=== PATIENT | female | born 1960 | race Caucasian/White ===

== ENCOUNTER → 2024-06-14 08:41 | Outpatient (REF) | payer MEDICARE, SELFPAY | LOC: HWWDC 08:41 | PROVIDERS: ATTENDING PHYSICIAN Family Medicine | DX: Z12.31 Encounter for screening mammogram for malignant neoplasm of breast (principal) | CPT/HCPCS: 77063; 77067 ==

== ENCOUNTER 2024-11-07 22:12 | Observation (INO) | payer MEDICARE, SELFPAY ==
[2024-11-07 18:53] VITALS: BP 179/100
[2024-11-07 19:24] LABS: % Eosinophils 6.4 % (0-6); % Immature Granulocytes 0.4 % (0-0.5); % Lymphocytes 23.5 % (20.5-51.1); % Monocytes 6.3 % (1.7-9.3); % Neutrophils 62.4 % (42.2-75.2); Absolute Basophils 0.1 10^3/uL (0-0.2); Absolute Eosinophils 0.9 10^3/uL (0-0.7); Absolute Immature Granulocytes 0.1 10^3/uL (0-0.05); Absolute Lymphocytes 3.2 10^3/uL (1.2-3.4); Absolute Monocytes 0.9 10^3/uL (0.1-0.6); Absolute Neutrophils 8.5 10^3/uL (1.4-6.5); Hemoglobin 14.8 g/dL (12.0-16.0); Mean Corp Hgb Conc. 33.6 g/dL (33.0-37.0); Mean Corpuscular Hgb 26.6 pg (27.0-31.0); Mean Corpuscular Volume 79.1 fL (81.0-99.0); Nucleated Red Blood Cells % 0 %; Platelet Count 271 10^3/uL (130-400); Red Blood Cell Count 5.56 10^6/uL (4.20-5.40); Red Cell Dist. Width 13.2 % (11.5-14.5); White Blood Cell Count 13.7 10^3/uL (4.8-10.8)
[2024-11-07 19:41] LABS: ALT (SGPT) 40 U/L (0-35); AST (SGOT) 35 U/L (14-36); Albumin 4.6 g/dl (3.5-5.0); Alkaline Phosphatase 82 U/L (38-126); Blood Urea Nitrogen 24 mg/dl (7-17); Calcium 9.8 mg/dl (8.4-10.2); Carbon Dioxide 30 mmol/L (22-30); Chloride 100 mmol/L (98-107); Glucose 194 mg/dl (70-99); Potassium 4.8 mmol/L (3.5-5.1); Sodium 140 mmol/L (135-145); Total Bilirubin 0.6 mg/dl (0.2-1.3); Total Protein 6.9 g/dl (6.3-8.2); eGFR > 60.00
--- NOTE | 2024-11-07 21:31 | ED.SKININJ ---
HPI-Injury
General
Chief Complaint: Bite
Source: patient
Exam Limitations: none
Time Seen by Provider: 11/07/24 20:55
Nursing documentation reviewed up to this point in time: agreed with
History of Present Illness-Injury
Initial Injury comments:
The patient is a pleasant 64-year-old female who reports that she was walking in the park 4 days ago and feels she got bit by an insect just above her right ankle area. Patient reports that the next day she noticed the area was red and inflamed.
Patient reports that she was evaluated yesterday at urgent care and started on Keflex for an infected insect bite. Despite taking 4 doses of antibiotics, the skin redness and swelling is now streaking up her right lower leg and down her right foot.
Patient reports chills but no fever.
Past History
Past History
ED Past Medical History: HTN, Hypercholesterolemia and NIDDM
ED Past Surgical History: Other
Social History
Tobacco: Non-smoker
Alcohol: Other
Drug: None
Personal:
Living: with family
Employment: Other
Family History
Family History: Other
Review of Systems
Review of Systems
Allergies reviewed?: Yes
All Other Systems: ROS reviewed and negative except as documented in HPI and ROS
Constitutional: Reports chills
EENT: Reports no symptoms
Respiratory: Reports no symptoms
Cardiac: Reports no symptoms
ABD/GI: Reports no symptoms
: Reports no symptoms
Musculoskeletal: Reports edema
Skin: Reports other
Neurological: Reports no symptoms
Endocrine: Reports no symptoms
Hematologic/Lymphatic: Reports no symptoms
Psychiatric: Reports no symptoms
Phy Exam
Physical Exam
Physical Exam:
Physical Exam
General: no apparent distress, not acutely ill
Neck: supple.
Heart: s1/s2 regular rate and rhythm, no murmur. equal radial pulses.
Lungs: no acute respiratory distress. clear bilaterally
Abdomen: normal bowel sounds. not tender. no CVAT
Neuro: alert and oriented. no focal neurological deficits
Skin: Erythematous circular area just proximal to right lateral ankle that appears to look like an infected bug bite with surrounding erythema encompassing patient's right ankle area, top of patient's right foot and
streaking redness up right lower leg.
Psychiatric: well kept. interactive and cooperative
Extremities: Edematous right lower extremity. Full range of movement of right ankle with minimal pain.
Course
Orders/Labs/Results
Orders:
Orders
11/07/24 19:16
Complete Blood Count/With Diff Urgent
Comprehensive Metabolic Panel Urgent
11/07/24 21:36
Clindamycin 600 mg/50 ml [Cleocin] 600 mg in 50 ml IV NOW
Abnormal Lab Results
11/07/24
19:16
WBC 13.7 H 10^3/uL
(4.8-10.8)
RBC 5.56 H 10^6/uL
(4.20-5.40)
MCV 79.1 L fL
(81.0-99.0)
MCH 26.6 L pg
(27.0-31.0)
Abs Immat Gran (auto) 0.1 H 10^3/uL
(0-0.05)
Absolute Neuts (auto) 8.5 H 10^3/uL
(1.4-6.5)
Absolute Monos (auto) 0.9 H 10^3/uL
(0.1-0.6)
Absolute Eos (auto) 0.9 H 10^3/uL
(0-0.7)
Eosinophils % 6.4 H %
(0-6)
BUN 24 H mg/dl
(7-17)
Glucose 194 H mg/dl
(70-99)
ALT 40 H U/L
(0-35)
11/07/24 19:16
11/07/24 19:16
Vital Signs
Initial and Last Documented VS:
Initial Vital Signs
Temp Pulse Resp BP Pulse Ox
98.6 F 91 18 179/100 99
11/07/24 18:53 11/07/24 18:53 11/07/24 18:53 11/07/24 18:53 11/07/24 18:53
Last Documented Vital Signs
Temp Pulse Resp BP Pulse Ox
98.6 F 91 18 179/100 99
11/07/24 18:53 11/07/24 18:53 11/07/24 18:53 11/07/24 18:53 11/07/24 18:53
MDM/Problems Addressed
Differential Diagnosis Includes:
Infected insect bite of right lower extremity, septic arthritis of right ankle, inflammatory reaction from bug bite
MDM/Problems Addressed:
Patient presents with acute swelling, redness and pain of right lower extremity after possible insect bite
Chronic conditions affecting care: DM
Acute Exacerbation and/or Progression of Chronic Illness:
Patient is acutely hyperglycemic, likely due to infection
Acute Exacerbation and/or Progression of Chronic Illness: DM
*Pulse Oximetry
Patient hypoxic: no
*EKG
Interpreted by ED Provider?: NA
*Scientific Aide Interpretation
Rate: Scientific Aide- N/A
*Critical Care Note
Total Time (30-74mins, 75-104mins- exclusive of procedures): Not Applicable
Patient Management
Social determinants of health affecting care: Living situation and Strong social support
Discussion with other providers: Hospitalist
ED Attending Note
-
Portions of this chart may have been created with voice recognition software.� Occasional wrong word or��sound alike� substitutions may have occurred due to the inherent limitations of voice recognition software.
Discharge Plan
Departure
Patient Disposition: Admit
Date of Disposition: 11/07/24
Time of Disposition: 21:31
Admit to: Med/Surg
Presentation/result/management discussed w/ accepting MD/DO: Hospitalist
Patient with high blood pressure during this ER visit?: Yes
Condition: Good
Covid-19: Not Applicable
Discharge Problem:
Infected wound of right lower leg
Referrals:
Henrique Dang MD [Family Provider] -
Interventions
Interventions:
*Risk Screen - Suicide Last Done: 11/07/24 18:55
*General Assessment Last Done: 11/07/24 18:55
*Neglect/Abuse Screening Last Done: 11/07/24 18:55
*ED- Fall Risk Assessment Last Done: 11/07/24 20:50
*ED COVID-19 Vaccine History Last Done: 11/07/24 18:55
ED-Skin Assessment Last Done: 11/07/24 20:50
Discharge Date and Time
Print Language: NIGERIAN
--- NOTE | 2024-11-07 21:39 | HPS.HSE ---
Family Physician
-
Family Physician: Henrique Dang
Chief Complaint
-
leg wound
History of Present Illness
This is a 64-year-old female presenting to the emergency department with right lower extremity swelling and redness following an insect bite about 2 days ago.
Patient has past medical history significant for diabetes and hypertension. She noticed stinging sensation about days ago while enjoying the pack. She noticed immediate small spot with cycle raised erythematous lesion in left leg. She denied
pruritus. She reports of burning sensation.�Redness and swelling increased and patient was seen at urgent care. There she was started on Keflex. She started taking Keflex on Friday 1 PM. She has continued to take the Keflex until today. She
reports that there is been increased to swelling and redness since then. No pruritus still. She denies fevers or chills. She currently feels that there is more numbness than pain.
In the emergency department she was hypertensive to 180/100 pulse rate of 91 and she was satting 99% on room air. She was afebrile with a temp of 98.6. White count was 13.7 hemoglobin and platelet counts were normal. Electrolytes BUN/creatinine
were stable and normal. Glucose was 194.
Medical History
Past Medical History
Past Medical History: Reports Asthma, HTN, Hypercholesterolemia, NIDDM and Other (IBS, diverticulosis)
Additional Past Medical History:
Neuromediated
Left eye optic neuritis
Past Surgical History: Reports Appendectomy, Gynocological (Hysterectomy) and Other (Right breast biopsy)
Social History
Tobacco: Non-smoker
Alcohol: Occasional
Drug: None
Personal: Single
Living: With Family
Family History
Family History: Not pertinent
Allergies / Home Medications
Allergies reflects when Allergies were last updated in [facility].
Home Medications with original date entered in [facility]
Allergy/Medication List:
Allergies
Allergy/AdvReac Type Severity Reaction Status Date / Time
meclizine [From Antivert] Allergy Unknown Verified 11/07/24 18:54
Albuterol Sulfate HFA 108 (90 Base) MCG/ACT 2 puffs as needed Inhalation every 6 hrs for 30 days Apr, Active
hydroCHLOROthiazide 25 MG TAKE 1 TABLET BY MOUTH EVERY DAY IN THE MORNING FOR 90 DAYS Orally Once a day for 90 days Active
Crestor 20 MG 1 tablet Orally Once a day for 90 days May, Active
CoQ-10 100 MG 2 capsules Orally Once a Day Active
Cephalexin 500 MG 1 tablet Orally every 8 hrs for 7 days Oct, November, Active
Meloxicam 15 MG 1 tablet Orally Once a day for 90 days Sep, Active
Fexofenadine HCl 180 MG 1 tablet Swallow whole with water; do not take with fruit juices. Orally Once a day Active
Montelukast Sodium 10 MG TAKE 1 TABLET BY MOUTH EVERY DAY FOR 90 DAYS for 90 Active
Vitamin D 50 MCG (2000 UT) 1 tablet Orally Once a day for 30 day(s) Active
Valsartan 160 MG TAKE 1 TABLET BY MOUTH EVERY DAY for 90 days Active
metFORMIN HCl ER 500 MG TAKE 1 TABLET BY MOUTH EVERY DAY WITH EVENING MEAL for 90 days Active
Review of Systems
-
History Source: Patient
Constitutional: Reports No Symptoms
EENT: Reports No Symptoms
Respiratory: Reports No Symptoms
Cardiac: Reports No Symptoms
Abdomen/GI: Reports No Symptoms
: Reports No Symptoms
Musculoskeletal: Reports No Symptoms
Neurological: Reports No Symptoms
Endocrine: Reports No Symptoms
Hematologic/Lymphatic: Reports No Symptoms
Psych: Reports No Symptoms
Physical Exam
Vital Signs
Vital Signs
Temp Pulse Resp BP Pulse Ox
98.6 F 91 18 179/100 99
11/07/24 18:53 11/07/24 18:53 11/07/24 18:53 11/07/24 18:53 11/07/24 18:53
Physical Exam
General: Well Developed, Well Nourished, No Apparent Distress and Comfortable
HEENT: NormoCephalic, Anicteric, Moist mucous membranes and Atraumatic
Respiratory: Clear
Cardiac: S1/S2 and Regular Rhythm
GI: Soft, Non Tender, Non Distended and Normal Bowel Sounds
Rectal: Deferred by Provider
Genito-urinary: Deferred by me
Musculoskeletal: No Clubbing, No Cyanosis and No Edema
Skin: Warm and Rash (2 cm circular erythematous plaque with central dark depression. There is extension of petechia down to the ankles and then a blanchable erythematous and edematous swelling at the feet. No tenderness to palpation. No calor.)
Neuro: AO x 3 and Nonfocal/grossly intact
Hematologic/Lymphatic: No Lymphadenopathy
Psych: Calm
Laboratory Results
-
11/07/24 19:16
11/07/24 19:16
Laboratory Results
Total Bilirubin 0.6 mg/dl (0.2-1.3) 11/07/24 19:16
AST 35 U/L (14-36) 11/07/24 19:16
ALT 40 U/L (0-35) H 11/07/24 19:16
Alkaline Phosphatase 82 U/L (38-126) 11/07/24 19:16
Data Reviewed
-
Lab Data: Labs Reviewed by me
Old Records: Reviewed
Impression/Plan
-
IMPRESSION:
Is a 64-year-old with history of diabetes and hypertension as well as hyperlipidemia, asthma presenting to the emergency department with swelling and redness of the left lower extremity. Suspect this is secondary to bug bite. Patient is
well-appearing with stable in no acute distress. He has a leukocytosis 7.7 but otherwise labs are unremarkable. The lesion has clear circular erythematous plaque with central dark spot consistent with possible insect bite. There is surrounding
erythema or any edema which is more consistent with reactive/allergic process rather than cellulitis. There is no tenderness to palpation. She has been on cephalexin for about 1 day. She has minimal risk factors for or resistant infection.
PLAN:
1. Cellulitis - Suspect more likely local reaction to insect bite. No purulence, no abscess.
- admit to med/surg obs
- clinda started in ED, in the absence of purulent drainage, abscess collection or extensive cellulitis, will use ancef for now and monitor
- keep leg elevated
- benadryl if itching
- monitor for fevers.
2. DM II -mild hyperglycemia
- Metformin 500 p.m.
-Sliding scale insulin
- continue crestor 20 daily
3. Hypertension
�Continue hydrochlorothiazide 25 daily
� Valsartan 160 mg daily
DVT PPX - lovenox sq
Code Status - Full Code
[2024-11-07] MEDS: CLEOCIN 50 IV (22:28)
[2024-11-07] MEDS: FLUSH (NSS) 1 FLUSH IV (22:30)
[2024-11-07 23:33] VITALS: BP 186/90
--- NOTE | 2024-11-07 23:33 | PTCARENOTE ---
Pt arrived from ED via stretcher and ambulated to the bed with spouse present. Pt is AAOX3, VSS, and no complaints of pain. Pt is oriented to room, with call lockwood within reach.
[2024-11-07 23:34] VITALS: BMI 33.9
[2024-11-08 03:28] VITALS: BP 126/71
[2024-11-08] MEDS: ANCEF 10 IV (05:15)
[2024-11-08 08:13] LABS: Glucose - Point of Care 156 mg/dl (70-99)
[2024-11-08 08:29] LABS: Hematocrit 41.6 % (37.0-47.0); Mean Corp Hgb Conc. 33.7 g/dL (33.0-37.0); Mean Corpuscular Hgb 26.5 pg (27.0-31.0); Mean Corpuscular Volume 78.6 fL (81.0-99.0); Mean Platelet Volume 10.1 fL (7.4-10.4); Platelet Count 272 10^3/uL (130-400); Red Blood Cell Count 5.29 10^6/uL (4.20-5.40); Red Cell Dist. Width 13.2 % (11.5-14.5); White Blood Cell Count 13.6 10^3/uL (4.8-10.8)
[2024-11-08] MEDS: CLARITIN 10 MG PO (08:32)
[2024-11-08] MEDS: MOBIC 15 MG PO (08:32)
[2024-11-08] MEDS: DIOVAN 160 MG PO (08:32)
[2024-11-08 08:34] VITALS: BP 135/85
[2024-11-08] MEDS: VITAMIN D3 (cholecalciferol) 50 MCG PO (08:35)
[2024-11-08] MEDS: ORETIC 25 MG PO (08:36)
[2024-11-08 09:10] LABS: Blood Urea Nitrogen 22 mg/dl (7-17); Calcium 9.8 mg/dl (8.4-10.2); Carbon Dioxide 27 mmol/L (22-30); Chloride 104 mmol/L (98-107); Estimated Creatinine Clearance 83 ml/min; Glucose 157 mg/dl (70-99); Iron 80 ug/dl (37-170); Potassium 4.3 mmol/L (3.5-5.1); Sodium 139 mmol/L (135-145); eGFR > 60.00
[2024-11-08 09:18] LABS: Percent Saturation 28 % (20-50); Total Iron Binding Capacity 280 ug/dl (265-497)
[2024-11-08 12:15] LABS: Glucose - Point of Care 145 mg/dl (70-99)
--- NOTE | 2024-11-08 12:31 | W.PN.HOSP.TC ---
Today's Communication/Plan
-
dc
Assessment / Plan
Assessment / Plan
64yo F with PMHx of atopic d/o, HTN, DM, HTN came with worsening RLE swelling after she found out a possible insect bite 4 days before admisison. She did not report finding the tick, however bite occured after she walked in the park. Swelling and
redness then developed that prompted her to go to urgent care, she was staretd on Keflex, took 4 doses of it, but came to ED since redness extended. In ED started on Keflex, RLE elevation and redness much improved. No collection seen on bedside
assessment, patient is afebrile. US LE neg for DVT. reasonable for outpatient mgmt. Recommended dry dressing on the top, avoid lotions or creams and cont Doxy for 2 week with precautions to avoid direct sunlight, multivitamins and Calcium
supplements. SHe verbalized understanding of this amd medically stable for d/c for moniotring at home.
A/P:
#RLE cellulitis s/p insect bite
High risk area for Lyme - reasonable Doxy for 2 weeks and outpatient Lyme test with PCP
dry dressings
#Essential HTN
#HLD
#DM type 2 with unspecified
#Atopic D/o
cont home meds
DVT ppx SCDs
Full code
I have spent at least 38min reviewing chart, test results, communication with consultants and providing direct patient care
Anticipated Discharge: Today
Subjective/Interval History
-
Date of Service: November 08, 2024
Objective Data
-
Labs:
Laboratory Results
11/08/24
07:30
WBC 13.6 H
Hgb 14.0
Hct 41.6
Plt Count 272
Sodium 139
Potassium 4.3
Chloride 104
Carbon Dioxide 27
BUN 22 H
Creatinine 0.7
Glucose 157 H
Calcium 9.8
Vital Signs:
Vital Signs
Temp Pulse Resp BP Pulse Ox
98.3 F 75 18 135/85 95
11/08/24 08:34 11/08/24 08:34 11/08/24 08:34 11/08/24 08:34 11/08/24 10:58
Review of Systems
-
History Source: Patient
All other systems: Reviewed and negative
Physical Exam
-
General: No Apparent Distress
HEENT: Normocephalic
Respiratory: Clear to Auscultation
Cardiac: Regular Rhythm
Skin: Other (bite site on lateral distal davenport with minimal surrounding redness, improving for past 24h)
Neuro: Awake, Alert, Oriented and AO x 3
Psych: Calm
--- NOTE | 2024-11-08 12:35 | W.DCSUMMARY ---
Discharge Summary
Discharge Data
Date of Admission: 11/07/24
Date of Discharge: 11/08/24
-
Pending Results: No
Hospital Course
64yo F with PMHx of atopic d/o, HTN, DM, HTN came with worsening RLE swelling after she found out a possible insect bite 4 days before admisison. She did not report finding the tick, however bite occured after she walked in the park. Swelling and
redness then developed that prompted her to go to urgent care, she was staretd on Keflex, took 4 doses of it, but came to ED since redness extended. In ED started on Keflex, RLE elevation and redness much improved. No collection seen on bedside
assessment, patient is afebrile. US LE neg for DVT. reasonable for outpatient mgmt. Recommended dry dressing on the top, avoid lotions or creams and cont Doxy for 2 week with precautions to avoid direct sunlight, multivitamins and Calcium
supplements. SHe verbalized understanding of this amd medically stable for d/c for moniotring at home.
I have spent at least 38min reviewing chart, test results, communication with consultants and providing direct patient care
Patient was managed for:
#RLE cellulitis s/p insect bite
#Essential HTN
#HLD
#DM type 2 with unspecified
#Atopic D/o
Discharge Plan
-
Patient Disposition: Home (Routine Discharge)
Discharge Diagnosis/Procedures: cellulitis
Diet: Diabetic, Carb Controlled
Referrals:
Henrique Dang MD [Family Provider] - in one week
Prescriptions:
New
doxycycline hyclate 100 mg Capsule
100 mg PO Q12 Qty: 13 0RF
Continued
valsartan 160 mg Tablet
160 mg PO DAILY
rosuvastatin 20 mg Tablet
20 mg PO DAILY
hydrochlorothiazide 25 mg Tablet
25 mg PO DAILY
montelukast 10 mg Tablet
10 mg PO DAILY
meloxicam 15 mg Tablet
15 mg PO DAILY
fexofenadine 180 mg Tablet
180 mg PO DAILY
metformin 500 mg Tablet Extended Release 24 Hr
500 mg PO DAILY
cholecalciferol (vitamin D3) [Vitamin D3] 50 mcg (2,000 unit) Capsule
50 mcg PO DAILY
Discharge Orders:
Discharge Patient (As Directed); Ordered 11/08/24
Ordered By: David Corley
Discharge Date and Time
Print Language: GEORGIAN
[2024-11-08] MEDS: VIBRAMYCIN 100 MG PO (12:59)
--- NOTE | 2024-11-08 13:09 | CM ---
Patient stable for d/c today. Met w/ patient and spouse bedside, initial assessment completed. Patient is a 64-year-old female presenting to the emergency department with right lower extremity swelling and redness following an insect bite.
Patient resides w/ spouse in single story home- 3 steps to enter. Independent w/ ambulating, no device required. Independent w/ ADLS. Recently moved and added grab bar and shower chair in the bathroom. No SNF/HC hx reported. OP therapy in the past
for ankle.
Address, point of contact and insurance verified
PCP: Henrique Toledo
Pharmacy: [facility]
Patient admitted as obs. DILL[facility] form verbally reviewed, copy given to patient, copy on chart
IMM verbally reviewed, copy given to patient, copy on chart
Plan: Home; no needs
[2024-11-08 13:18] VITALS: BP 156/90
[2024-11-08 18:27] LABS: Hepatitis C Antibody Negative (Negative)
== END 2024-11-08 13:27 | disposition home or self-care (01) ==
LOC: 4 EAST ACU 22:12
PROVIDERS: Student in an Organized Health Care Education/Training Program; ADMITTING PHYSICIAN Internal Medicine; ATTENDING PHYSICIAN Internal Medicine; EMERGENCY PHYSICIAN Emergency Medicine; FAMILY PHYSICIAN Family Medicine
DX: L03.115 Cellulitis of right lower limb (principal); L08.9 Local infection of the skin and subcutaneous tissue, unspecified; E11.65 Type 2 diabetes mellitus with hyperglycemia; I10 Essential (primary) hypertension; M79.89 Other specified soft tissue disorders
CPT/HCPCS: 80048; 80053; 82728; 82962; 83540; 83550; 85025; 85027; 86803; 93971; 99285; G0378